=== PATIENT | female | born 1985 | race Caucasian/White ===

== ENCOUNTER 2021-09-13 17:41 | Emergency (ER) | payer MEDICAID, SELFPAY ==
[2021-09-13 18:07] VITALS: BP 175/98; PULSE 102; RESP 18; TEMP 37.1; O2SAT 97; BMI 59.5
--- NOTE | 2021-09-13 18:50 | W.ED.ABDPA2 ---
HPI - Abdominal Pain General: Chief Complaint: Abdominal Pain Stated Complaint: KIDNEY STONE RELATED PAIN/FEVER Time Seen by Provider: 09/13/21 18:50 History of Present Illness: HPI narrative: 36-year-old female comes in today with left flank pain. Patient reports that she has had episodes of renal calculi in the past. Patient reports 2 days ago she started having some discomfort but then today the pain has worsened. Patient has had to have the stones removed surgically which occurred about 6 to 7 years ago. Patient denies any chronic medical problems or routine medicines. Review of Systems General: Reports: 10 or more systems reviewed and unremarkable except in HPI and below : Reports: flank pain Physical Exam Const: COMMON NORMALS: no acute distress and patient oriented x3 GENERAL APPEARANCE: cooperative HENMT: COMMON NORMALS: normocephalic and Normal external nose present HEAD & SCALP: normal to inspection and normocephalic NOSE: Normal external nose present Eye: GENERAL EYE: appearance normal, both eyes and all related structures Neck/C-Spine: COMMON NORMALS: full ROM Chest: COMMONS NORMALS: normal inspection of the chest Resp: COMMON NORMALS: normal respiratory effort EFFORT & INSPECTION: Yes able to speak in complete sentences Cardio: COMMON NORMALS: regular rate and regular rhythm RATE: regular rate RHYTHM: regular rhythm GI: COMMON NORMALS: non-tender : BLADDER/KIDNEY EXAM: Yes CVA tenderness on the left Back/Pelvis: COMMON NORMALS: thoracic and lumbar spine normal to inspection GENERAL BACK: Yes CVA tenderness Extremity: COMMON NORMALS: normal to inspection Neuro: COMMON NORMALS: patient oriented x3 and moves all extremities Psych: COMMON NORMALS: mental status grossly normal and cooperative Skin: COMMON NORMALS: no rashes or lesions noted GENERAL SKIN EXAM: no rashes or lesions noted Course ED course: 1999, reviewed patient with Dr. Pelletier. Patient has an 11 mm stone in the proximal ureter on the left side. Patient does have some mild elevation in white blood cell count, creatinine is 1.1, urine had large number of red blood cells. Dr. Montoya, urologist, is not on-call tonight. Dr. Pelletier recommended discharging patient to home with follow-up with Dr. Montoya as long as she patient appears well and pain is controlled. At this time patient's pain is controlled without any medication he does have a little bit of nausea. We will treat patient with hydrocodone and ondansetron. I am going to cover patient with 1 g of ceftriaxone due to her white count being 19,000. Case management will be consulted for follow-up with urology. Vital Signs: Vital signs: Vital Signs Temperature 98.7 F 09/13/21 18:07 Pulse Rate 102 H 09/13/21 18:07 Respiratory Rate 18 09/13/21 18:07 Blood Pressure 175/98 09/13/21 18:07 Pulse Oximetry 97 09/13/21 18:07 MDM - Abdominal Pain MDM Narrative: Medical decision making narrative: 36-year-old female comes in today with left flank pain. On exam patient has some CVA tenderness. Patient appears well. Patient appears in mild to moderate pain at this time. Differential diagnosis includes but not limited to renal calculi, sepsis, UTI. CT of the abdomen pelvis indicated a approximate 11 mm stone in the proximal ureter on the left side. Patient did have some elevation of white count at 19,000 and a creatinine of 1.1. Patient appeared well and pain was under good control. I reviewed this with Dr. Pelletier he recommended follow-up with Dr. Montoya on outpatient. Patient was recommended to monitor for fever and worsening symptoms return to the ER if needed. Patient was given 1 g of Rocephin with 4 mg of dance at home for her complaints of nausea. Patient was also given one dose of hydrocodone and tamsulosin to help with expression of kidney stone and control of pain. Patient be continued on Cipro, hydrocodone, tamsulosin, and ondansetron for symptoms and prophylaxis antibiotic. Patient reported understanding of care plan and need for follow-up or return to the ER. Lab Data: Labs: Lab Results 09/13/21 09/13/21 09/13/21 18:38 19:21 19:21 WBC 19.8 10^3/uL H 10 ^3/uL (4.0-10.0) RBC 5.25 10^6/uL 10^6 /uL (4.1-5.3) Hgb 14.7 g/dL g/dL (11.5-15.3) Hct 45.2 % % (37.0-47.0) MCV 86.1 fl fl (81-99) MCH 28.0 pg pg (28.0-34.0) MCHC 32.5 g/dL g/dL (30.0-36.0) RDW 13.3 % % (12.1-15.1) Plt Count 176 10^3/cmm 10^3 /cmm (130-400) MPV 10.0 fL fL (7.4-10.4) Neut % (Auto) 90.1 % % Lymph % (Auto) 5.9 % % [place] % (Auto) 2.5 % % Eos % (Auto) 0.2 % % Baso % (Auto) 0.6 % % Neut # (Auto) 17.82 10^3/uL H 1 0^3/uL (1.8-7.7) Lymph # (Auto) 1.2 10^3/uL 10^3/ uL (0.8-4.8) [place] # (Auto) 0.5 10^3/uL 10^3/ uL (0.2-0.9) Eos # (Auto) 0.0 10^3/uL 10^3/ uL (0.0-0.8) Baso # (Auto) 0.1 10^3/uL 10^3/ uL (0.0-0.1) Nucleated RBC % (a uto) 0 % % Nucleated RBCs # 0.0 /100WBC /100W BC Sodium 139 mmol/L mmol/L (136-145) Potassium 3.7 mmol/L mmol/L (3.5-5.1) Chloride 101 mmol/L mmol/L (98-107) Carbon Dioxide 21 mmol/L L mmol/ L (22-29) Anion Gap 20.7 H (5-19) BUN 11 mg/dL mg/dL (6-20) Creatinine 1.1 mg/dL H mg/dL (0.5-0.9) GFR Calculation 56.9 mL/min L mL/ min (90-130) Glucose 125 mg/dL H mg/dL (65-115) Calculated Osmolal ity 289 mOsm/kg mOsm/ kg (285-295) Calcium 8.8 mg/dL mg/dL (8.5-10.5) HCG, Qual Negative (Negative) Discharge Plan Discharge Patient Disposition: Home Clinical Impression: Calculi, ureter Condition: Stable Prescriptions: New hydrocodone-acetaminophen 5-325 mg tablet 1 tab PO Q4H PRN (Reason: pain) Qty: 20 RF: 0 ondansetron 4 mg tablet,disintegrating 4 mg PO Q6H PRN (Reason: nausea and vomiting) Qty: 10 RF: 0 ciprofloxacin HCl 500 mg tablet 500 mg PO BID Qty: 14 RF: 0 tamsulosin 0.4 mg capsule 0.4 mg PO DAILY Qty: 10 RF: 0 Discharge Orders: Discharge ED (Routine); Ordered 09/13/21 Ordered By: Tripp Bailon Discharge Diet: Usual diet Discharge Activity: Increase activity as tolerated Patient Instructions: Kidney Stones (ED), Opioid Safety Activity Restrictions/Additional Instructions: Home and rest. Take medications as directed. Case management will contact you regarding follow-up appointment with the urologist. Monitor for fever greater than 100.4. Return to the ER for high fever, persistent vomiting, uncontrolled pain, or new concerns. Follow-up with primary care as needed. 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
--- NOTE | 2021-09-13 18:59 | CTR_ITS ---
PROCEDURE INFORMATION: Exam: CT Abdomen And Pelvis Without Contrast Exam date and time: 09/13/2021 6:59 PM Age: 36 years old Clinical indication: Nausea; Abdominal pain; Flank; Left; Prior surgery; Surgery type: x 4, stone removal; Additional info: Left flank pain, denies TECHNIQUE: Imaging protocol: Computed tomography of the abdomen and pelvis without contrast. Radiation optimization: All CT scans at this facility use at least one of these dose optimization techniques: automated exposure control; mA and/or kV adjustment per patient size (includes targeted exams where dose is matched to clinical indication); or iterative reconstruction. COMPARISON: No relevant prior studies available. RADIATION DOSE METRICS: Total DLP (mGy-cm): 1893.07 FINDINGS: Lungs: The lung bases appear unremarkable. Liver: Decreased hepatic density is noted, consistent with hepatic steatosis. Gallbladder and bile ducts: No calcified stones. No ductal dilation. Pancreas: The pancreas is normal in appearance. No pancreatic duct dilatation. Spleen: The spleen is normal in size and appearance. Adrenal glands: The adrenal glands appear within normal limits. Kidneys and ureters: Mild left hydronephrosis. There is a 10 mm proximal left ureteral calculus, just beyond the UPJ. Findings are consistent with left obstructive uropathy. Bilateral non-obstructing renal calculi noted measuring up to 3 mm in diameter. No right hydronephrosis. The right ureter appears normal.The urinary bladder is unremarkable in appearance. Stomach and bowel: No acute gastric abnormality demonstrated. The small bowel is unremarkable as demonstrated. Diverticulosis of the colon. No evidence of acute diverticulitis. Appendix: The appendix is normal in appearance. No evidence of appendicitis. Intraperitoneal space: No pneumoperitoneum. No significant fluid collection. Vasculature: No abdominal aortic aneurysm. Lymph nodes: No enlarged lymph nodes. Urinary bladder: Unremarkable as visualized. Reproductive: Uterus and adnexa are unremarkable. Bones/joints: Unremarkable. No acute osseous abnormality. Soft tissues: The abdominal wall demonstrates a small umbilical hernia, containing only fat. CT/CT kidney stone 25134 IMPRESSION: 1. Mild left hydronephrosis. There is a 10 mm proximal left ureteral calculus, just beyond the UPJ. Findings are consistent with left obstructive uropathy. 2. Decreased hepatic density is noted, consistent with hepatic steatosis. 3. The abdominal wall demonstrates a small umbilical hernia, containing only fat. 4. Diverticulosis of the colon. No evidence of acute diverticulitis.
[2021-09-13 19:18] LABS: HCG Qualitative Urine. Negative (Negative)
[2021-09-13 19:39] LABS: Basophils # 0.1 10^3/uL (0.0-0.1); Basophils % 0.6 %; Eosinophils % 0.2 %; Hematocrit 45.2 % (37.0-47.0); Hemoglobin 14.7 g/dL (11.5-15.3); Lymphocytes # 1.2 10^3/uL (0.8-4.8); Lymphocytes % 5.9 %; Mean Corpuscular HGB Conc 32.5 g/dL (30.0-36.0); Mean Corpuscular Volume 86.1 fl (81-99); Monocytes # 0.5 10^3/uL (0.2-0.9); Monocytes % 2.5 %; Neutrophils # 17.82 10^3/uL (1.8-7.7); Neutrophils % 90.1 %; Nucleated Red Blood Cells % 0 %; Platelet Count 176 10^3/cmm (130-400); Red Blood Count 5.25 10^6/uL (4.1-5.3); Red Cell Distribution Width 13.3 % (12.1-15.1); White Blood Count 19.8 10^3/uL (4.0-10.0)
[2021-09-13 19:43] LABS: Blood Urea Nitrogen 11 mg/dL (6-20); Calcium 8.8 mg/dL (8.5-10.5); Carbon Dioxide 21 mmol/L (22-29); Chloride 101 mmol/L (98-107); Glomerular Filtration Rate 56.9 mL/min (90-130); Glucose 125 mg/dL (65-115); Osmolality Calculated 289 mOsm/kg (285-295); Sodium 139 mmol/L (136-145)
[2021-09-13 19:47] LABS: Anion Gap 20.7 (5-19); Potassium 3.7 mmol/L (3.5-5.1)
[2021-09-13] MEDS: tamsulosin 0.4 mg Capsule PO (20:45)
[2021-09-13] MEDS: ondansetron 4 MG Tablet PO (20:45)
[2021-09-13] MEDS: HYDROcodone-acetaminophen 7.5-325 mg Tablet 1 TAB PO (20:45)
[2021-09-13] MEDS: cefTRIAXone 1,000 MG in lidocaine 1% 2.1 ML 1 MG IM (20:50)
[2021-09-13 21:24] VITALS: BP 160/94; PULSE 114; RESP 18; O2SAT 97
[2021-09-13 22:31] LABS: Add Urine Microscopic? YES; Bilirubin Urine Neg (Negative); Blood Urine 2+ (Negative); Glucose Urine UA Norm (Normal); Ketones Urine Negative (Negative); Leukocyte Esterase Urine Trace (Negative); Nitrate Urine Negative (Negative); Protein Urine Neg (Negative); Urine Appearance Turbid (CLEAR); Urine Color Yellow (Yellow); Urobilinogen Urine Norm (Negative); pH Urine 5 (5-7)
[2021-09-13 22:32] LABS: Add Urine Culture? No; Amorphous Sediment Urine 3+ /hpf; Bacteria Urine 1+ /hpf; Squamous Epithelial Cell Urine 0-4 /hpf (0-5); WBC Urine 15-25 /hpf (0-5)
== END 2021-09-13 21:08 | disposition home or self-care (01) ==
PROVIDERS: Emergency Medicine; Emergency Provider Nurse Practitioner Family
DX: N20.1 Calculus of ureter (principal)
CPT/HCPCS: 74176; 80048; 81001; 81025; 85025; 96372; 99283; J0696; Q0162

== ENCOUNTER 2021-09-19 12:40 | Outpatient (CLI) | payer MEDICAID, SELFPAY ==
--- NOTE | 2021-09-19 12:43 | XR_ITS ---
WS: [id number] XR KUB [id number] REASON FOR EXAM: STONES FINDINGS: CT scan of 09/23/2021 demonstrated subcutaneous millimeters calculus within the right kidney and 2 sm all calculi within the left kidney. An 8 to 10 mm calculus was also demonstrated in the proximal left ureter just distal to the ureteral pelvic junction. Just to the left of the inferior margin of the L4 vertebral body there is a vague density on the radi ograph but may represent the calculus in the proximal left ureter demonstrated on the CT scan. No oth er densities that could be construed as a calculus is seen along the course of the left ureter. No other significant abdominal abnormality. XR/XR KUB [id number] IMPRESSION: Density seen in the left lower abdomen which would appear to represent the prev iously demonstrated left ureteral calculus, unchanged in position.
== END 2021-09-19 12:41 | disposition home or self-care (01) ==
LOC: RAD 12:42
PROVIDERS: PCP Urology; Visit Provider Urology
DX: N20.1 Calculus of ureter (principal); Z20.822 Contact with and (suspected) exposure to COVID-19
CPT/HCPCS: 74018; 81003; 87635

== ENCOUNTER 2021-09-20 10:31 | Day surgery (SDC) | payer MEDICAID, SELFPAY ==
[2021-09-19 17:09] VITALS: BMI 59.5
--- NOTE | 2021-09-20 | SCC_ITS ---
Procedure Done: 1. Cystoscopy, left retrograde ureterogram 2. Left ureteral stent placement 22.8 seconds of fluoroscopic guidance, for a cumulative dose of 15.65 mGy, was provided to Dr. Montoya by the radiology department. C-arm images of the abdomen were saved for the patient's permanent record. [facility]
--- NOTE | 2021-09-20 07:00 | P.OP_ITS ---
Operative Report Date of procedure: September 20, 2021 Pre-op Diagnosis: LEFT ureteral calculus with UTI Post-op diagnosis: same Procedure Done: 1. Cystoscopy, left retrograde ureterogram 2. Left ureteral stent placement Implants: Left ureteral stent (7 Gambian by 24 cm double-pigtail without string Pathology: none sent Surgeon: Lindsay Anesthesia: General Estimated blood loss: None Urine output: Not measured Findings: Stone was in the expected position. The wire easily bypassed the stone curled in the area of the upper pole calyx and stent was placed without difficulty. Condition: stable Disposition: PACU Brief History: Zonia is a very pleasant 36-year-old white female who I first time yesterday points recently diagnosed left proximal ureteral stone. In the emergency department she had an elevated white count pyuria but no notes of sepsis. Was given antibiotics, pain medication, antiemetics. The stone had progressed and she was seen in my office yesterday. Recommended a cystoscopy and stent placement. She had eaten yesterday on the way to the clinic and because she did not have evidence of sepsis or progressive infection (in fact the infection picture seems improved) recommended a left ureteral stent placement today. The goal is to first drain her urinary tract, continue antibiotics, and follow-up for definitive therapy of stone after improvement clinically. Procedure: After urgent evaluation examination and obtaining of informed consent she was taken to the operating suite on 09/20/2021 where general anesthesia was administered without difficulty after appropriate timeout was performed, SCDs confirmed to be functioning, preoperative antibiotics administered, beta-sabine protocol confirmed. Prepped and draped in usual sterile fashion in dorsolithotomy position paying careful attention to avoiding pressure points. 21 Gambian cystoscope with 30 degree lens was introduced into the urethra meatus and advanced into the bladder to videoscopy. The bladder did not show signs of chronic infection. An 8 Gambian cone-tip catheter was intubated to the left ureteral orifice for left retrograde pyelogram that demonstrated normal course and caliber of the ureter. The stone was encountered in the expected position as a filling defect. No further contrast was injected. The injection was done under low pressure to avoid over distention of the collecting system given the concern for infection. A flexible tip guidewire was then easily advanced up the left ureter bypassing the stone without difficulty and curling in the area of the upper pole calyx. A 6 Gambian by 24 cm double-pigtail stent was then advanced over the guidewire through the cystoscope into appropriate position as confirmed via fluoroscopy and cystoscopy. All the efflux was relatively clear given the concern for potential infection. There was no gross purulence. The bladder was drained and the procedure was completed. She tolerated procedure well without complications and was awakened in the operating room and returned to the recovery room in stable condition. PLANS: 1. Dissipate discharge from outpatient surgery 2. Continue antibiotics 3. Follow-up on 09/25/2021 for scheduling of endoscopic treatment of the stone.
--- NOTE | 2021-09-20 07:00 | P.HPUD_ITS ---
Surgery/Procedure H&P Update DATE OF PROCEDURE: September 20, 2021 DATE H&P PERFORMED: 09/19/21 H&P UPDATE INFORMATION: I have reviewed H&P completed within last 30 days, I have examined patient prior to procedure, No changes to prior documentation and H&P is in [facility] EMR on date indicated CHANGES TO PREVIOUS DOCUMENTATION: Still having significant nausea. No spiking temperature. Actually she felt better last night that she has since the stone was diagnosed. Still in quite a bit of discomfort though from the stone. Proceed as planned PLANNED PROCEDURE: Operation Date: 09/20/21 11:35 Proposed Procedures p Laser Lithotripsy 74363 N20.1(Left) - Eulalio Montoya MD s Cystoscopy(Left) - Eulalio Montoya MD s Ureteral Stent Placement(Left) - Eulalio Montoya MD s Ureteroscopy(Left) - Eulalio Montoya MD
--- NOTE | 2021-09-20 11:07 | XR_ITS ---
WS: [id number] XR KUB [id number] REASON FOR EXAM: Preop left ureteral stent placement FINDINGS: Presumed left ureteral calculus again identified overlying the left transverse process of L4. Similar position to the previous examination of 09/19/2021. No new finding. XR/XR KUB [id number] IMPRESSION: Left ureteral calculus without significant distal migration.
--- NOTE | 2021-09-20 11:07 | SC_ITS ---
WS: [id number] INTRAOPERATIVE TECHNIQUE: 2 Spot fluoroscopic images for intraoperative purposes. FLUOROSCOPY TIME: 22.8 seconds CLINICAL INFORMATION: Left ureteral stent placement COMPARISON: None. FINDINGS: Partially visualized deployment of a left ureteral stent. SC/C-arm FL for Urology IMPRESSION: Images obtained for intraoperative purposes.
--- NOTE | 2021-09-20 12:22 | ANES.PREANE2 ---
Pre-Anesthetic Assessment Pre-Anesthetic Assessment: Height/Weight: Height 1.52 m Weight 138.346 kg Preop Diagnosis: Left proximal ureteral stone With UTI Proposed Procedure: Operation Date: 09/20/21 11:30 Proposed Procedures p Laser Lithotripsy 12498 N20.1(Left) - Eulalio Montoya MD s Cystoscopy(Left) - MD whit Daniel Ureteral Stent Placement(Left) - MD whit Daniel Ureteroscopy(Left) - Eulalio Montoya MD Was Beta Juan taken within 24 hours: N/A Was Clonidine taken within 24 hours: N/A Last intake: Intake Last Liquid Date 09/20/21 Last Liquid Time 07:00 Last Solid Date 09/19/21 Last Solid Time 12:00 Social: Social History: No alcohol and No tobacco Exam: Pre-Anes Outpt Exam: alert, oriented x 3, clear to auscultation bilaterally and regular rate & rhythm Airway: Submandibular: WNL Cervical ROM: WNL MP: 2 Dentition: Chipped Metabolic: Metabolic: Morbid obesity Anesthetic Plan: ASA status: 2 Anesthesia: General Risk of > 500 ml blood loss (7ml/kg in children): No PFSH Anesthesia PFSH: Social History Smoking and tobacco status: never smoked Alcohol intake: never Marital status: Single Current occupational status: unemployed History of recent travel: No Female Reproductive History: Date of last menstrual period: 09/02/21 Data Anesthesia Cardiac Studies: No Data to Display
[2021-09-20 12:53] VITALS: BP 134/74; PULSE 120; RESP 18; TEMP 36.7; O2SAT 92
[2021-09-20 12:58] VITALS: BP 112/63; PULSE 114; RESP 17; O2SAT 91
[2021-09-20 13:03] VITALS: BP 114/69; PULSE 110; RESP 20; O2SAT 95
[2021-09-20 13:08] VITALS: BP 120/74; PULSE 108; RESP 19; O2SAT 96
[2021-09-20 13:13] VITALS: BP 119/75; PULSE 106; RESP 15; O2SAT 96
[2021-09-20 13:37] VITALS: BP 118/76; PULSE 104; RESP 18; TEMP 37.2; O2SAT 97
--- NOTE | 2021-09-20 14:12 | ANE.PACU2 ---
Inpatient post-anesthesia follow up: Airway intact: Yes Vital signs: Temperature 98.9 F Pulse Rate 104 Respiratory Rate 18 Blood Pressure 118/76 Pulse Oximetry 97 Oxygen Delivery Me thod Room Air Oxygen Flow Rate 2 Fraction of Inspir ed Oxygen Hydration adequate: Yes Nausea and vomiting: No Pain level: 2 Mental status: Baseline
[2021-09-20] MEDS: HYDROcodone-acetaminophen 5-325 mg Tablet 1 TAB PO (14:17)
[2021-09-20] MEDS: sodium chloride 0.9% 1,000 ML 30 ML IV (15:09)
== END 2021-09-20 14:15 | disposition home or self-care (01) ==
PROVIDERS: Visit Provider Urology
PROC: 0TJB8ZZ Inspection of Bladder, Via Natural or Artificial Opening Endoscopic (ICD-10-PCS; CPT 52000; 2021-09-20 11:30)
PROC: (CPT 50605; 2021-09-20 11:30)
PROC: 0TJ98ZZ Inspection of Ureter, Via Natural or Artificial Opening Endoscopic (ICD-10-PCS; CPT 52351; 2021-09-20 11:30)
DX: N20.1 Calculus of ureter (principal); N39.0 Urinary tract infection, site not specified; E66.01 Morbid (severe) obesity due to excess calories; Z68.43 Body mass index [BMI] 50.0-59.9, adult
CPT/HCPCS: 52332; 74018; 76000; 81025; C2625; J0330; J1100; J2405; J2704; J3010; J7030

== ENCOUNTER → 2021-09-27 16:27 | Outpatient (BNVA) | payer MEDICAID, SELFPAY | PROVIDERS: Visit Provider Urology | DX: N20.1 Calculus of ureter (principal) | CPT/HCPCS: 81003; 87635 ==

== ENCOUNTER 2021-10-02 12:22 | Day surgery (SDC) | payer MEDICAID, SELFPAY ==
[2021-09-28 12:26] VITALS: BMI 59.5
[2021-10-02] VITALS (10 sets, daily range): BP systolic 126–157; BP diastolic 66–108; PULSE 89–101; RESP 15–19; TEMP 35.9–37.2; O2SAT 96–100
--- NOTE | 2021-10-02 | SCC_ITS ---
Procedure Done: 1. Cystoscopy removal of left ureteral stent 2. Left retrograde ureteropyelogram 3. Left ureteral renoscopy with laser lithotripsy stent replacement 45.6 seconds of fluoroscopic guidance, for a cumulative dose of 37.25 mGy, was provided to Dr. Montoya by the radiology department. C-arm images of the abdomen were saved for the patient's permanent record. [facility]
--- NOTE | 2021-10-02 12:30 | SC_ITS ---
WS: [id number] C-arm fluoroscopy for stent replacement Clinical Data: Left ureteroscopy Comparison: None. Findings: Dr. Montoya replaced a left ureteral stent. SC/C-arm FL for Urology Impression: Left ureteral stent placement.
--- NOTE | 2021-10-02 12:30 | XR_ITS ---
WS: [id number] KUB, AP view, 10/02/2021 Clinical Data: Preop left ureteroscopy Comparison: KUB, 09/20/2021. Findings: There is a left ureteral stent in good position. The previously noted mid left ureteral calculus is n ot seen. XR/XR KUB [id number] Impression: Left ureteral stent.
[2021-10-02 12:56] LABS: OR HCG Qualitative Urine Negative (Negative)
[2021-10-02] MEDS: sodium chloride 0.9% 1,000 ML 30 ML IV (13:15)
--- NOTE | 2021-10-02 13:15 | ANES.PREANE2 ---
Pre-Anesthetic Assessment Pre-Anesthetic Assessment: Height/Weight: Height 1.52 m Weight 138.346 kg Temp Pulse Resp BP Pulse Ox 96.7 F L 101 H 18 153/108 96 10/02/21 12:55 10/02/21 12:55 10/02/21 12:55 10/02/21 12:55 10/02/21 12:55 Preop Diagnosis: Left mid ureteral stone status post emergency stenting Proposed Procedure: Operation Date: 10/02/21 14:05 Proposed Procedures p Cystoscopy 56438 mod 26; 29418(Not Applicable) - Eulalio Montoya MD s Retrograde Pyelogram(Left) - Eulalio Montoya MD s Ureteroscopy(Left) - Eulalio Montoya MD s Ureteral Stent Exchange(Left) - Eulalio Montoya MD Familial anesthetic complications: None Was Beta Juan taken within 24 hours: N/A Was Clonidine taken within 24 hours: N/A Last intake: Intake Last Liquid Date 10/01/21 Last Liquid Time 23:30 Last Solid Date 10/01/21 Last Solid Time 23:30 Social: Social History: No alcohol and No tobacco Exam: Pre-Anes Outpt Exam: alert, oriented x 3, clear to auscultation bilaterally and regular rate & rhythm Airway: Cervical ROM: WNL MP: 4 Dentition: Chipped Metabolic: Metabolic: Morbid obesity Anesthetic Plan: ASA status: 2 Anesthesia: General Risk of > 500 ml blood loss (7ml/kg in children): No PFSH Anesthesia PFSH: Surgical History S/P ureteral stent placement Social History Alcohol intake: never Marital status: Single Current occupational status: unemployed History of recent travel: No Female Reproductive History: Date of last menstrual period: 08/31/21 Data Anesthesia Other Labs: Laboratory Results - last 48 hr 10/02/21 12:33 Urine HCG, Qual Negative Cardiac Studies: No Data to Display
--- NOTE | 2021-10-02 13:58 | W.PM.OPSUD ---
Surgery/Procedure H&P Update DATE OF PROCEDURE: October 02, 2021 DATE H&P PERFORMED: 09/27/21 H&P UPDATE INFORMATION: I have reviewed H&P completed within last 30 days, I have examined patient prior to procedure, Changes to prior documentation as noted here and H&P is in [facility] EMR on date indicated CHANGES TO PREVIOUS DOCUMENTATION: Preop KUB did not clearly show the stone. There was a hint of a possible calcification similar to the one that was seen on the CT scan up in the area of the renal pelvis. We will identify the location of the stone endoscopically and treat accordingly. PREOP DIAGNOSIS: Left mid ureteral stone status post emergency stenting PLANNED PROCEDURE: Operation Date: 10/02/21 14:05 Proposed Procedures p Cystoscopy 63981 mod 26; 74250(Not Applicable) - Eulalio Montoya MD s Retrograde Pyelogram(Left) - Eulalio Montoya MD s Ureteroscopy(Left) - MD whit Daniel Ureteral Stent Exchange(Left) - Eulalio Montoya MD
[2021-10-02] MEDS: levofloxacin-dextrose 5 % 500 MG/100 ML PREMIX 100 MG IV (14:20)
--- NOTE | 2021-10-02 14:25 | PM.OP ---
Operative Report Date of procedure: October 02, 2021 Pre-op Diagnosis: Left mid ureteral stone status post emergency stenting Post-op Diagnosis: Left mid ureteral stone status post emergency stenting Procedure Done: 1. Cystoscopy removal of left ureteral stent 2. Left retrograde ureteropyelogram 3. Left ureteral renoscopy with laser lithotripsy stent replacement Pathology: Stone fragments Surgeon: Lindsay Anesthesia: General Estimated blood loss: Minimal Urine output: Not measured Complications: None Condition: stable Disposition: PACU Brief History: Lisbet is a very pleasant 36-year-old white female recently evaluated for severe left renal colicky pain and evidence of infection with obstructing stone. She was not septic but clearly ill and urgent stent placement was performed and she was continued on antibiotics with planned endoscopic treatment of the stone after recovery from the infection. The stone could not be clearly seen on plain x-ray but was readily visible in the mid ureteral area on CT scan. Preop KUB today was actually good quality film but I still cannot clearly see the stone but there was a hint of a stone in the area of the renal pelvis which may have represented a stone migrating proximally at time of stent placement. Procedure: After routine preoperative evaluation examination and obtaining of informed consent she was taken to the operating suite on 10/02/2021 where general anesthesia was administered without difficulty after appropriate timeout was performed, SCDs confirmed to be functioning, preoperative antibiotics administered, beta-sabine protocol confirmed. Prepped and draped in the usual sterile fashion in dorsolithotomy position paying careful attention to avoiding pressure points. 21 Arabic cystoscope with 30 degree lens was introduced to the urethral meatus and advanced into the bladder to videoscopy. The bladder was systematically examined and found to be within normal limits with mild inflammatory changes. The stent was grasped and grasping forceps withdrawn through the urethral meatus with the proximal aspect examined during fluoroscopy. A flexible tip guidewire was then advanced up the stent and the stent was easily withdrawn after the wire curled in the area of the renal pelvis. An 8 Arabic cone-tip catheter was then intubated into the left ureter for a left retrograde ureteropyelogram. Findings of retrograde pyelogram: The ureter showed no evidence of the stone. There was a filling defect in the renal pelvis consistent with a stone previously identified in the mid ureter. There was no significant hydronephrosis and the calyces were sharp. A second guidewire was passed without difficulty and a 24 cm ureteral access sheath was advanced over the second working wire to the hub. The wire was removed and a flexible ureteroscope was advanced easily up the sheath into the renal pelvis where the stone was encountered. A 365 ?m thulium superpulse laser fiber was utilized to fragment the stone into sand. A good portion of this was washed through the sheath. On final inspection with the laser fiber removed no significant fragments remained. Bleeding was minimal. The integrity of the collecting system was confirmed. All the different calyces were inspected utilizing the contrast that was in the collecting system to help guide. The sheath was then backloaded over the hub of the scope and the scope was removed with direct visualization of the ureter. No fragments or stones in the ureter were identified. Cystoscope was then backloaded over the safety wire and a 6 Arabic by 24 cm double-pigtail stent was advanced over the guidewire through the cystoscope into appropriate position as confirmed via fluoroscopy and cystoscopy. A few fragments were washed from the bladder and these were sent for pathologic evaluation. Stent was confirmed to be draining and the procedure was completed. She tolerated procedure well without complications and was awakened in the operating room and returned to the recovery room in stable condition. Plans: 1. Anticipate discharge from outpatient surgery 2. Follow-up in 1 week for cystoscopy and stent removal. No KUB required.
[2021-10-02] MEDS: iohexol 300 mg/mL 50 mL Btl (OR ONLY) XX (14:44)
[2021-10-02] MEDS: fentaNYL 50 mcg/mL INJ 2mL IVP (15:28)
[2021-10-02] MEDS: HYDROcodone-acetaminophen 5-325 mg Tablet 1 TAB PO (16:25)
--- NOTE | 2021-10-02 17:06 | ANE.PACU2 ---
Inpatient post-anesthesia follow up: Airway intact: Yes Vital signs: Temperature 97.8 F Pulse Rate 90 Respiratory Rate 18 Blood Pressure 132/91 Pulse Oximetry 96 Oxygen Delivery Me thod Room Air Oxygen Flow Rate 6 Fraction of Inspir ed Oxygen Hydration adequate: Yes Nausea and vomiting: No Pain level: 2 Mental status: Baseline
== END 2021-10-02 16:27 | disposition home or self-care (01) ==
PROVIDERS: Anesthesiology; Visit Provider Urology
PROC: 0TJB8ZZ Inspection of Bladder, Via Natural or Artificial Opening Endoscopic (ICD-10-PCS; CPT 52000; principal; 2021-10-02 14:00)
PROC: (CPT 74420; 2021-10-02 14:00)
PROC: 0TJ98ZZ Inspection of Ureter, Via Natural or Artificial Opening Endoscopic (ICD-10-PCS; CPT 52351; 2021-10-02 14:00)
PROC: (CPT 52356; 2021-10-02 14:00)
PROC: (CPT 52356; 2021-10-02 14:00)
DX: N20.1 Calculus of ureter (principal); E66.01 Morbid (severe) obesity due to excess calories; Z68.43 Body mass index [BMI] 50.0-59.9, adult
CPT/HCPCS: 52356; 74018; 76000; 81025; 82365; 84703; 88300; C2625; J0330; J1100; J1956; J2405; J2704; J3010; J7030

== ENCOUNTER → 2021-10-13 08:24 | Outpatient (BNVA) | payer MEDICAID, SELFPAY | PROVIDERS: Visit Provider Urology | DX: N30.01 Acute cystitis with hematuria (principal) | CPT/HCPCS: 81003 ==